=== PATIENT | male | born 1950 | race Caucasian/White ===

== ENCOUNTER → 2018-11-18 | Outpatient (CLI) | payer MEDICARE, BC ==
[~2018-11-18] MED LIST: ASPI325 PO; COLCRYS0.6 MG PO; CYCL10 PO; Cleocin HCl300 MG PO; FISH1000 PO; HYDACE10B PO; Lovastatin10 MG PO; Prinivil10 MG PO
== END ==
LOC: LAB SHORT 09:50 → PLD 09:50
DX: D22.61 Melanocytic nevi of right upper limb, including shoulder (principal)
CPT/HCPCS: 88305